=== PATIENT | male | born 1990 ===

== ENCOUNTER → 2018-08-04 | Outpatient (REF) | payer BC ==
[2018-08-04 11:16] LABS: FREE T4 0.97 NG/DL (0.76-1.46); THYROID STIMULATING HORMONE 2.6 uIU/ML (0.358-3.740)
[2018-08-04 11:40] LABS: ESTRADIOL 22.4 PG/ML (<39.8)
[2018-08-06 09:51] LABS: TESTOSTERONE FREE (DIRECT) 7.5 pg/mL (8.7-25.1)
== END ==
LOC: M LAB REF 10:28
PROVIDERS: ATTEND Obstetrics & Gynecology
DX: E29.1 Testicular hypofunction (principal); F52.0 Hypoactive sexual desire disorder; E34.9 Endocrine disorder, unspecified